=== PATIENT | female | born 1995 ===

== ENCOUNTER 2018-02-11 18:50 | Emergency (ER) | payer OTHER ==
[2018-02-11 19:24] VITALS: BP 135/91; PULSE 101; RESP 18; TEMP 98.5; O2SAT 96
--- NOTE | 2018-02-11 19:52 | C.PDOC ---
History Of Present Illness 22 year old female presents to the ER with a complaint of tongue pain and swelling for the past 2 days. Patient has multiple piercing on her tongue, 2 days ago she removed one and since then has had pain and swelling to the area. Denies fever. Prior to this patient had piercings for 5 years. Time Seen by Provider: 02/11/18 19:20 Chief Complaint (Nursing): Abnormal Skin Integrity History Per: Patient History/Exam Limitations: no limitations Onset/Duration Of Symptoms: Hrs Current Symptoms Are (Timing): Still Present Quality Of Symptoms: Painful, Swollen Recent travel outside of the [place]: No Past Medical History Reviewed: Historical Data, Nursing Documentation, Vital Signs Vital Signs: Last Vital Signs Temp 98.5 F 02/11/18 19:07 Pulse 101 H 02/11/18 19:07 Resp 18 02/11/18 19:07 BP 135/91 H 02/11/18 19:07 Pulse Ox 96 02/11/18 19:07 Family History: States: Unknown Family Hx - Social History Hx Alcohol Use: Yes Hx Substance Use: No - Immunization History Hx Tetanus Toxoid Vaccination: No Hx Influenza Vaccination: No Hx Pneumococcal Vaccination: No Review Of Systems Constitutional: Negative for: Fever ENT: Positive for: Other (Pain and swelling to tongue) Physical Exam - Physical Exam Appears: Non-toxic Skin: Normal Color, Warm, Dry Head: Atraumatic, Normacephalic Eye(s): bilateral: Normal Inspection Oral Mucosa: Moist Tongue: Other (Tender firm area at site of removed piercing, no flutuance or drainage) Lips: Normal Appearing, No Swelling Teeth: Normal Dentition Gingiva: Normal Appearing, No Swelling, No Tender Throat: Normal, No Erythema, No Exudate Neurological/Psych: Oriented x3, Normal Speech ED Course And Treatment O2 Sat by Pulse Oximetry: 96 (Room air) Pulse Ox Interpretation: Normal Progress Note: Motrin given for pain. Patient is resting comfortably in the ER in no acute distress, vitals are stable, will start on clinda, discharge home with Rx and instructions to follow up with oral child protective services specialist. Disposition - Disposition Referrals: Sonia Nazario DMD [Staff Provider] - Disposition: HOME/ ROUTINE Disposition Time: 19:52 Condition: STABLE Additional Instructions: Follow up with oral child protective services specialist within 1-2 days. Return to ED if feel worse. Prescriptions: Clindamycin [Cleocin] 300 mg PO Q6 #28 cap Ibuprofen [Motrin Tab] 600 mg PO Q8 #30 tab Instructions: Oral Piercings Forms: [facility] (Croatian) - Clinical Impression Clinical Impression: Pierced tongue infection - PA / CHICKEN BONER / Resident Statement MD/DO has reviewed & agrees with the documentation as recorded. - Scribe Statement The provider has reviewed the documentation as recorded by the Scribemily Roach All medical record entries made by the Avel were at my direction and personally dictated by me. I have reviewed the chart and agree that the record accurately reflects my personal performance of the history, physical exam, medical decision making, and the department course for this patient. I have also personally directed, reviewed, and agree with the discharge instructions and disposition.
== END 2018-02-11 20:13 | disposition home or self-care (01) ==
LOC: C.ER 18:50
DX: K14.0 Glossitis (principal)